=== PATIENT | female | born 1945 | race Caucasian/White ===

== ENCOUNTER 2022-10-04 10:22 | Emergency (ER) | payer OTHER ==
[~2022-10-04] VITALS: Ht 149.9 cm; Wt 42.6 kg
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
--- NOTE | 2022-10-04 10:45 | NUR ---
covid swab collected and sent to lab.
--- NOTE | 2022-10-04 10:53 | NUR ---
Latrell Chappell (cousin) [phone]
[2022-10-04 11:04] LABS: BASOPHILS % (AUTO) 0.3 % (0.0-2.0); HEMATOCRIT 37 % (33-45); HEMOGLOBIN 11.7 g/dL (11.5-14.8); LYMPHOCYTES # (AUTO) 2.2 K/uL (0.8-4.8); LYMPHOCYTES % (AUTO) 15.5 % (20.0-44.0); MEAN CORPUSCULAR HGB CONC 32 g/dl (31.0-36.0); MEAN CORPUSCULAR VOLUME 94 fL (82-100); MONOCYTES # (AUTO) 1.1 K/uL (0.1-1.30); MONOCYTES % (AUTO) 7.7 % (2.0-12.0); NEUTROPHILS # (AUTO) 10.7 K/uL (1.8-8.9); NEUTROPHILS % (AUTO) 76.5 % (43.0-81.0); PLATELET COUNT (AUTO) 384 K/uL (150-450)
[2022-10-04 11:37] LABS: ALANINE AMINOTRANSFERASE 16 U/L (12-78); ALCOHOL, BLOOD < 3 mg/dL (0-0); ALKALINE PHOSPHATASE 109 U/L (46-116); ASPARTATE AMINOTRANSFERASE 30 U/L (15-37); BILIRUBIN,DIRECT 0.1 mg/dL (0.0-0.2); BILIRUBIN,TOTAL 0.4 mg/dL (0.2-1.0); CALCIUM, SERUM 9.7 mg/dL (8.5-10.1); CARBON DIOXIDE 23 mmol/L (21-32); CHLORIDE 101 mmol/L (98-107); CREATININE 1.2 mg/dL (0.6-1.3); GLUCOSE 106 mg/dL (74-106); POTASSIUM 4.8 mmol/L (3.5-5.1); SODIUM SERUM 133 mmol/L (136-145); TOTAL PROTEIN, SERUM 8.1 g/dL (6.4-8.2); UREA NITROGEN, BLOOD 44 mg/dL (7-18)
[2022-10-04 11:41] LABS: ACETAMINOPHEN 0 ug/ml (10-30)
[2022-10-04 12:31] LABS: BILIRUBIN,URINE NEGATIVE (NEGATIVE); COLOR,URINE YELLOW (YELLOW); LEUKOCYTE ESTERASE ,URINE NEGATIVE (NEGATIVE); NITRITE, URINE NEGATIVE (NEGATIVE); PH,URINE 5.5 (5.0-8.0); PROTEIN,URINE NEGATIVE (NEGATIVE); UGLUCOSE NEGATIVE (NEGATIVE); UROBILINOGEN,URINE 0.2 EU/dL (0.2)
--- NOTE | 2022-10-04 12:59 | NUR ---
CALLIE CALLED, SAID CRISIS TEAM WILL NOT GET INVOLVED THUIS IS A PLACEMENT ISSUE, AND A CASE FOR SOCIAL WORK. CALLED [facility] AND ETA IS 30MIN
[2022-10-04 13:28] LABS: BACTERIA,URINE Few /HPF (None Seen)
[2022-10-04 13:29] LABS: HYALINE CASTS, URINE Rare /LPF (None Seen); SQUAMOUS EPITHELIAL CELL,UR Moderate /HPF (None Seen)
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
--- NOTE | 2022-10-04 15:36 | NUR ---
Facility Referral: DYLAN contacted [facility] ([phone]) to help with placement due to pt agreeing to go to an assisted living for $800.00. [facility] was unavailable and this underwriter will attempt to contact again.
--- NOTE | 2022-10-04 15:47 | NUR ---
FACILITY CONTACT: DYLAN SPOKE WITH MUNA FROM [facility] ([phone]) WHO STATED THAT SHE IS ACCEPTING PT AT HER INDEPENDENT LIVING LOCATED [address] [place] [address] AND STATED THAT THEY WILL INCLUSION SPECIALIST PT BETWEEN 5-6PM. PERSON WHO WILL INCLUSION SPECIALIST IS EPI OR RAHEEM.
--- NOTE | 2022-10-04 15:49 | NUR ---
DISCHARGE NOTE: PATIENT WILL DISCHARGE TO AN INDEPENDENT LIVING. DYLAN SPOKE WITH MUNA FROM [facility] ([phone]) WHO STATED THAT SHE IS ACCEPTING PT AT HER INDEPENDENT LIVING LOCATED [address] [place] [address] AND STATED THAT THEY WILL DOUGH BRAKER PT BETWEEN 5-6PM. PERSON WHO WILL DOUGH BRAKER IS EPI OR HOVIK.
--- NOTE | 2022-10-04 16:17 | NUR ---
Family Contact: The pt.'s phone does not work. SW notified the pt.'s cousin, Latrell [phone] to ensure safe discharge that the pt. has agreed to go to an independent living facility located at [[address] [place] [address]] and that pt. will be transported there between 5pm-6PM today. Latrell expressed understanding and stated he was agreeable to plan.
--- NOTE | 2022-10-04 16:44 | NUR ---
DC to assisted living facility - [facility].
[2022-10-04 16:45] VITALS: BP 112/58
== END 2022-10-04 16:46 ==
LOC: ER 10:32
DX: F31.9 Bipolar disorder, unspecified (principal); F20.9 Schizophrenia, unspecified; R26.2 Difficulty in walking, not elsewhere classified; D72.829 Elevated white blood cell count, unspecified; N28.9 Disorder of kidney and ureter, unspecified; M19.90 Unspecified osteoarthritis, unspecified site; Z91.14 Patient's other noncompliance with medication regimen; Z20.822 Contact with and (suspected) exposure to COVID-19
CPT/HCPCS: 99283; 85025; 80048; 80076; 81001; 36415; 87426; 80143; 80320; 80307; C9803; G0480